=== PATIENT | male | born 1950 | race Caucasian/White ===

== ENCOUNTER 2017-10-16 11:12 | Emergency (ER) | payer MEDICARE ==
[2017-10-16] MEDS ORDERED: Lidocaine 1% 20 ML MDV ONE (11:38)
[2017-10-16] MEDS ORDERED: Adacel (T-DAP) 0.5 ML VIAL ONE (11:38)
== END 2017-10-16 11:55 | disposition home or self-care (01) ==
LOC: NAV ERS 11:12
DX: L08.9 Local infection of the skin and subcutaneous tissue, unspecified (principal); I10 Essential (primary) hypertension; Z87.891 Personal history of nicotine dependence
CPT/HCPCS: 90471; 90715; J2001